=== PATIENT | male | born 1990 | race Two or more races ===

== ENCOUNTER 2023-08-13 18:42 | Emergency (ER) | payer OTHER ==
[~2023-08-13] VITALS: Ht 175.3 cm; Wt 97.0 kg
[~2023-08-13 18:42] MED LIST: NOCURR
[2023-08-13 18:49] VITALS: TEMP 98
[2023-08-13] MEDS ORDERED: 0.9% SODIUM CHLORIDE 10 ML SYRINGE IVP PRN (19:00)
[2023-08-13] MEDS: KETOROLAC TROMETHAMINE 30 MG/ML VIAL IVP ONE (19:05)
[2023-08-13] MEDS: MethylPREDNISolone SOD SUCC 125 MG/2 ML VIAL IVP ONE (19:05)
[2023-08-13] MEDS: SODIUM CHLORIDE 0.9% 2,900 ML IV ONE (19:05)
[2023-08-13] MEDS: CLINDAMYCIN 900 MG/D5% WATER 50 ML IV ONE (19:09)
[2023-08-13 19:12] LABS: BASOPHILS % (AUTO) 0.7 % (0.0-2.0); EOSINOPHILS % (AUTO) 0.3 % (1.0-6.0); HEMATOCRIT 38.3 % (41-53); HEMOGLOBIN 12.9 g/dL (13.5-17.5); LYMPHOCYTES # (AUTO) 2.2 K/uL (1.0-4.8); LYMPHOCYTES % (AUTO) 14.7 % (22.0-44.0); MEAN CORPUSCULAR HEMOGLOBIN 28.5 pg (26.0-34.0); MEAN CORPUSCULAR HGB CONC 33.6 G/dL (31.0-37.0); MEAN CORPUSCULAR VOLUME 85 fL (80-100); MONOCYTES # (AUTO) 1.5 K/uL (0.1-1.0); MONOCYTES % (AUTO) 10.3 % (2.0-9.0); NEUTROPHILS # (AUTO) 11.1 K/uL (1.8-7.7); PLATELET COUNT (AUTO) 388 K/uL (150-450); RED BLOOD CELL COUNT(AUTO) 4.51 MIL/uL (4.50-5.90); WHITE BLOOD COUNT (AUTO) 14.9 K/uL (4.5-11.0)
[2023-08-13 19:28] LABS: LACTIC ACID 1.3 mmol/L (0.4-2.0)
[2023-08-13 19:32] LABS: ANION GAP 11 mmol/L (8-16); CALCIUM, TOTAL 9.5 mg/dL (8.8-10.5); CARBON DIOXIDE 25 mmol/L (22-29); CHLORIDE 99 mmol/L (98-107); GLOMERULAR FILTR. RATE CALC > 60 mL/min (>60); GLUCOSE,RANDOM 91 mg/dL (70-110); POTASSIUM 3.6 mmol/L (3.5-5.1); SODIUM SERUM 135 mmol/L (136-145); UREA NITROGEN, BLOOD 16 mg/dL (7-18)
[2023-08-13 19:37] LABS: ALANINE AMINOTRANSFERASE 23 U/L (12-78); ALBUMIN 4.1 g/dL (3.4-5.0); ALKALINE PHOSPHATASE 85 U/L (46-116); ASPARTATE AMINOTRANSFERASE 19 U/L (15-37); BILIRUBIN,TOTAL 0.4 mg/dL (0.1-1.0); TOTAL PROTEIN, SERUM 8.3 g/dL (6.4-8.2)
[2023-08-13] MEDS ORDERED: SODIUM CHLORIDE 0.9% 100 ML ONE (19:50)
[2023-08-13] MEDS ORDERED: IOHEXOL 350 MG/ML 100 ML VIAL ONE (19:50)
[2023-08-13] MEDS ORDERED: CEPH-558 PO (23:34)
[2023-08-13] MEDS ORDERED: ACET-66 PO (23:34)
[2023-08-13] MEDS ORDERED: IBUP-1554 PO (23:34)
[2023-08-13 23:39] LABS: COVID AG,FIA SOURCE NASAL SWAB
[2023-08-13] MEDS ORDERED: DIPH50CA37 PO (23:46)
[2023-08-13] MEDS: DiphenhydrAMINE HCL 25 MG CAPSULE PO ONE (23:50)
[2023-08-13 23:56] VITALS: BP 102/66; PULSE 95; RESP 16
[2023-08-14 00:15] LABS: SARS-COV2 (COVID) ANTIGEN,FIA Negative (Negative)
== END 2023-08-13 23:58 | disposition home or self-care (01) ==
LOC: EMS 18:43
DX: J02.9 Acute pharyngitis, unspecified (principal); Z20.822 Contact with and (suspected) exposure to COVID-19
CPT/HCPCS: 99291; 96365; 70491; 96375; 87426; 80053; 83605; 85025; 87040; 87430; 36415; 93005; 84145; J3490; J1885; J2930; Q9967; J7030; J7050